=== PATIENT | female | born 1990 | race American Indian/Alaskan Native ===

== ENCOUNTER 2017-08-17 09:27 | Emergency (ER) | payer SELFPAY ==
[2017-08-17 09:32] VITALS: BMI 18.6
[2017-08-17] MEDS ORDERED: Sodium Chloride 0.9% 1,000 ML IV STA (09:39)
[2017-08-17 09:43] VITALS: BP 118/66; PULSE 99; RESP 17; TEMP 97.4; O2SAT 100
--- NOTE | 2017-08-17 09:43 | ED PDOC ---
Arrival/HPI - General Time Seen by Provider: 08/17/17 09:28 Historian: Patient, EMS, Other (girlfriend) - History of Present Illness Narrative History of Present Illness (Text): 08/17/17 09:40 26 y/o female, pmh including gastritis, no alcohol abuse or psychiatric history , nkda, biba with the ambulance c/o alcohol intoxication x 4 hours. As per the girlfriend and the patient, they were both sitting in the living room, drinking Ga which the patient started to think about her grandmother which she years ago, started to drink half of bottle of ga, went to the bathroom and vomit, then went to the bed which she fall from the bed to the carpeted floor with possible head injury, no LOC, able to recall the whole event , started to crying and tearing, no homicidal or suicidal ideation, no auditory or visual hallucination, no chest pain or shortness of breath, no abdominal or rib pain, no extremities pain, no other medical or psychological complaints. Past Medical History - Provider Review Nursing Documentation Reviewed: Yes Family/Social History - Physician Review Nursing Documentation Reviewed: Yes Family/Social History: Unknown Family HX Allergies/Home Meds Allergies/Adverse Reactions: Allergies No Known Allergies Allergy (Verified 08/17/17 09:32) Home Medications: Home Meds Medication Instructions Recorded Confirmed No Known Home Med 08/17/17 08/17/17 Review of Systems - Review of Systems Systems not reviewed;Unavailable: Intoxicated Constitutional: absent: Fatigue, Fevers Eyes: absent: Vision Changes ENT: absent: Hearing Changes Respiratory: absent: SOB, Cough Cardiovascular: absent: Chest Pain Gastrointestinal: absent: Abdominal Pain, Diarrhea, Nausea, Vomiting Musculoskeletal: absent: Arthralgias, Back Pain, Neck Pain, Myalgias Skin: absent: Rash, Skin Lesions Neurological: absent: Headache, Dizziness, Speech Changes, Facial Droop, Seizure Psychiatric: absent: Anxiety, Suicidal Ideation Physical Exam Vital Signs Temp Pulse Resp BP Pulse Ox 08/17/17 09:42 97.4 F L 99 H 17 118/66 100 - Systems Exam Head: Present: Atraumatic, Normocephalic, Other (Facial: no tenderness or swelling, no deformities, no laceration or abrasion). No: Tenderness, Contusion , Swelling, Ecchymosis, Abrasion, Laceration Pupils: Present: PERRL Extroacular Muscles: Present: EOMI Conjunctiva: Present: Normal Ears: Present: NORMAL TM, Normal Canal. No: Erythema Mouth: Present: Moist Mucous Membranes, Normal Lips, Normal Tounge, Normal Teeth. No: Drooling Pharnyx: Present: Normal. No: ERYTHEMA, EXUDATE, TONSILS ENLARGED Nose (External): Present: Atraumatic. No: Abrasion, Contusion, Laceration Nose (Internal): Present: Normal Inspection, No Active Bleeding. No: Rhinorrhea , Septal Hematoma, Epistaxis Neck: Present: Normal Range of Motion, Trachea Midline. No: MIDLINE TENDERNESS , Paraspinal Tenderness, Lymphadenopathy Respiratory/Chest: Present: Clear to Auscultation, Good Air Exchange. No: Respiratory Distress, Accessory Muscle Use, Wheezes, Rales, Retracting, Rhonchi , Tender to Palpation Cardiovascular: Present: Regular Rate and Rhythm, Normal S1, S2. No: Murmurs Abdomen: Present: Normal Bowel Sounds. No: Tenderness, Distention, Peritoneal Signs, Rebound, Guarding Back: Present: Normal Inspection. No: CVA Tenderness, Midline Tenderness, Paraspinal Tenderness, Pain with Leg Raise, Decubitus Ulcer Upper Extremity: Present: Normal Inspection, Normal ROM, Neurovascularly Intact , Capillary Refill < 2s. No: Cyanosis, Edema, Deformity Lower Extremity: Present: Normal Inspection, NORMAL PULSES, Normal ROM, Neurovascularly Intact, Capillary Refill < 2 s. No: Edema, Tenderness, Swelling , Deformity Neurological: Present: GCS=15, CN II-XII Intact, Speech Normal, Motor Func Grossly Intact, Memory Normal Skin: Present: Warm, Dry, Normal Color. No: Rashes Psychiatric: Present: Alert, Oriented x 3, Normal Insight, Normal Concentration Medical Decision Making ED Course and Treatment: 08/17/17 09:44 -labs -CT head -IVF/pepcid -Observe and reassess 08/17/17 11:20 -Labs are non-significant except elevation Total bili 3.7 with no significant elevation of LFTs, no abdominal pain -Alcohol noted to be around 134 -Pt. is fully awake and alert x 4, walking with normal gait and posture independently, feeling much better, stated that she doesn't want CT head or any further evaluation. In my clinical evaluation, she is capable of signing herself out and the girlfriend is next to her which the girlfriend agreed that she can sign out. girlfriend stated that she will take her home and return to the ER if she wishes continue the care or any neurological deficits including but not limited to headache/dizziness/change in vision/change in behavior. -AMA AMA ER The patient refuses to stay in the Emergency Room (ER) to continue the care and wishes to leave the emergency department against my medical advice. Patient was told that staying in the ER is necessary and a full explanation of the reasons why was given, and understood by the patient with alert and oriented x4. The risk of leaving were explained in laymans term and including but not limited to intracranial hemorrhage, concussion, headache, pain, worsening of condition , permanent disability and from an undiagnosed or untreated condition. The patient accepts these risks, and is in my judgment is competent and capable of understanding the clinical situation and explanation of the risk of leaving. Patient was given the opportunity to ask questions and change mind. The patient was instructed regarding the best care for the present symptoms, and to follow up as soon as possible with the primary care doctor including specialist or return to the emergency department at an y time for continuing care. -You sign out against medical advice. Please stop drinking at home, follow up with your own pmd within 1 day, return to the ER for continue the medical care including any new or worsening signs or symptoms. - Lab Interpretations Lab Results: 08/17/17 09:57 08/17/17 09:57 Lab Results 08/17/17 09:57: Beta HCG, Quant < 2.39, Alcohol, Quantitative 134 H 08/17/17 09:57: Sodium 144, Potassium 3.6, Chloride 106, Carbon Dioxide 23, Anion Gap 18, BUN 8, Creatinine 0.7, Est GFR ( Amer) > 60, Est GFR (Non- Af Amer) > 60, Random Glucose 109, Calcium 9.3, Magnesium 1.7, Total Bilirubin 3.7 H, AST 38 H, ALT 22, Alkaline Phosphatase 58, Total Protein 8.8 H, Albumin 5.0 H, Globulin 3.8, Albumin/Globulin Ratio 1.3 08/17/17 09:57: WBC 5.4, RBC 4.38, Hgb 11.8 L, Hct 32.7 L, MCV 74.7 L, MCH 26.9 , MCHC 36.1, RDW 15.7 H, Plt Count 181, Gran % 76.1 H, Lymph % (Auto) 18.2 L, [place] % (Auto) 4.6, Eos % (Auto) 0.7 L, Baso % (Auto) 0.4, Gran # 4.09, Lymph # 1.0 L, [place] # 0.3, Eos # 0.0, Baso # 0.02 I have reviewed the lab results: Yes - Medication Orders Current Medication Orders: Discontinued Medications Famotidine (Pepcid) 20 mg IVP STAT STA Stop: 08/17/17 09:40 Last Admin: 08/17/17 10:00 Dose: 20 mg IVP Administration Document 08/17/17 10:00 [place] (Rec: 08/17/17 10:[address] [id number] Charges for Administration # of IVP Administrations 1 Sodium Chloride (Sodium Chloride 0.9%) 1,000 mls @ 999 mls/hr IV .Q1H1M STA Stop: 08/17/17 10:39 Last Admin: 08/17/17 10:00 Dose: 999 mls/hr eMAR Start Stop Document 08/17/17 10:00 LA (Rec: 08/17/17 10:[address] [facility] [id number] Intravenous Solution Start Date 08/17/17 Start Time 10:00 - PA / LEAD SOFTWARE QA ENGINEER / Resident Statement MD/DO has reviewed & agrees with the documentation as recorded. Disposition/Present on Arrival - Present on Arrival Any Indicators Present on Arrival: No History of DVT/PE: No History of Uncontrolled Diabetes: No Urinary Catheter: No History of Decub. Ulcer: No - Disposition Have Diagnosis and Disposition been Completed?: Yes Diagnosis: Alcohol intoxication, Non-compliance, Fall Disposition: AGAINST MEDICAL ADVICE Disposition Time: 11:23 Condition: GOOD Additional Instructions: -You sign out against medical advice. Please stop drinking at home, follow up with your own pmd within 1 day, return to the ER for continue the medical care including any new or worsening signs or symptoms. Referrals: PCP,NO [Primary Care Provider] - Follow up with primary [facility] [Outside] - Follow up with primary Forms: WORK NOTE
[2017-08-17 10:09] LABS: BASO # 0.02 K/mm3 (0.0-2.0); BASO % 0.4 % (0.0-3.0); EOS % 0.7 % (1.5-5.0); GRAN # 4.09 (1.4-6.5); GRAN % 76.1 % (50.0-68.0); HEMATOCRIT 32.7 % (36.0-48.0); LYMPH % 18.2 % (22.0-35.0); MEAN CELL VOLUME 74.7 fl (80.0-105.0); MEAN CORPUSCULAR HEMOGLOBIN 26.9 pg (25.0-35.0); MEAN CORPUSCULAR HGB CONC 36.1 g/dl (31.0-37.0); MONO # 0.3 (0.1-0.6); MONO % 4.6 % (1.0-6.0); PLATELET COUNT 181 10^3/uL (120.0-450.0); RED CELL DISTRIBUTION WIDTH 15.7 % (11.5-14.5); WHITE BLOOD COUNT 5.4 10^3/ul (4.5-11.0)
[2017-08-17 10:18] LABS: ALB/GLOB RATIO 1.3 (1.1-1.8); ALKALINE PHOSPHATASE 58 U/L (38-126); ALT/SGPT 22 U/L (7-56); AST/SGOT 38 U/L (14-36); BILIRUBIN,TOTAL 3.7 mg/dL (0.2-1.3); BLOOD UREA NITROGEN 8 mg/dL (7-21); CALCIUM 9.3 mg/dL (8.4-10.5); CARBON DIOXIDE 23 mmol/L (21-33); CHLORIDE 106 mmol/L (98-107); GFR AFRICAN-AMERICAN > 60; GLUCOSE,RANDOM 109 mg/dL (70-110); MAGNESIUM 1.7 mg/dL (1.7-2.2); POTASSIUM 3.6 mmol/L (3.6-5.0); SODIUM 144 mmol/L (132-148); TOTAL PROTEIN 8.8 g/dL (5.8-8.3)
[2017-08-17 10:55] LABS: ALCOHOL SERUM 134 mg/dL (0-10)
== END 2017-08-17 11:25 | disposition left against medical advice (07) ==
LOC: ED 09:27
DX: F10.129 Alcohol abuse with intoxication, unspecified (principal); W06.XXXA Fall from bed, initial encounter; Z91.19 Patient's noncompliance with other medical treatment and regimen
CPT/HCPCS: 80053; 83735; 84702; 85025; 96374; 99283; G0480; J7040